=== PATIENT | male | born 1945 | race Caucasian/White ===

== ENCOUNTER 2016-11-12 15:29 | Emergency (ER) | payer OTHER ==
[~2016-11-12] VITALS: Ht 172.7 cm; Wt 75.0 kg
[2016-11-12 15:31] VITALS: BP 214/115; PULSE 73; RESP 14; TEMP 97.6; O2SAT 94
[2016-11-12] MEDS ORDERED: LABETALOL HCL 100 MG/20 ML VIAL IV PUSH ONE (16:15)
[2016-11-12] MEDS ORDERED: LACTTAB8 PO (16:16)
[2016-11-12] MEDS ORDERED: MULT-142 PO (16:16)
[2016-11-12] MEDS ORDERED: ASPI81TA11 PO (16:16)
[2016-11-12] MEDS ORDERED: ASCO500T PO (16:16)
[2016-11-12] MEDS ORDERED: SIMV80TA PO (16:16)
[2016-11-12 16:19] VITALS: BP_SYST 192; BP_SYST 205; BP_SYST 230; BP_DIAS 101; BP_DIAS 105; RESP 21; RESP 25; RESP 28
--- NOTE | 2016-11-12 16:35 | PD ---
HPI Chief Complaint: Hypertension Time Seen by Provider: 16:31 Travel History International Travel<30 days: No Contact w/Intl Traveler<30days: No Traveled to known affect area: No History of Present Illness HPI 71-year-old male that presents to the ED for evaluation of hypertension. Patient states that he was seen by his doctor today who recommended that he comes here secondary to severe hypertension in the 200s systolic as well as lightheadedness. He denies any chest pain. No history of hypertension in the past. Per patient he monitors his blood pressure regularly and is usually in the 150s 140s. He has not taken anything for it. He does have a history of smoking. Per patient he feels lightheaded on occasion and not all the time. No pain of any kind. He does tell me that he is currently being monitored for a nodule to his left lung. He denies any chest pain. No shortness of breath. Per patient she's had scans for the nodule under all been within normal limits. She had a scan today before he went to see him and he sent them here. Per patient he was [facility] He was sent here for evaluation of the high blood pressure. He denies any fevers chills or sweats. No allergies to medication. PFSH Past Medical History High Cholesterol: Yes Diminished Hearing: No Hypertension: Yes Social History Alcohol Use: Yes (Occasionally) Tobacco Use: No Substance Use: No Allergies-Medications (Allergen,Severity, Reaction): Coded Allergies: No Known Allergies (Unverified , 11/12/16) Reported Meds & Prescriptions Reported Meds & Active Scripts Active Hydrochlorothiazide 25 Mg Tab 25 Mg PO BID Reported Simvastatin 80 Mg Tab 40 Mg PO DAILY Multi Vitamin and Mineral (Multiple Vitamins W/ Minerals) 1 Tab Tab 1 Tab PO EVERY OTHER DAY Lactobacillus Acidophilus 1 Tab Tab 1 Tab PO BID Aspirin EC (Aspirin) 81 Mg Tabdr 81 Mg PO DAILY Ascorbic Acid 500 Mg Tab 500 Mg PO DAILY Review of Systems Except as stated in HPI: all other systems reviewed are Neg Physical Exam Narrative GENERAL: SKIN: Warm and dry. HEAD: Atraumatic. Normocephalic. EYES: Pupils equal and round. No scleral icterus. No injection or drainage. ENT: No nasal bleeding or discharge. Mucous membranes pink and moist. Tongue is midline. No uvula deviation. NECK: Trachea midline. No JVD. CARDIOVASCULAR: Regular rate and rhythm. No murmurs, S3, S4. RESPIRATORY: No accessory muscle use. Clear to auscultation. Breath sounds equal bilaterally. GASTROINTESTINAL: Abdomen soft, non-tender, nondistended. Hepatic and splenic margins not palpable. MUSCULOSKELETAL: Extremities without clubbing, cyanosis, or edema. No obvious deformities. Full range of motion of the upper and lower extremities bilaterally. 2+ pulses bilaterally. NEUROLOGICAL: Awake and alert. No obvious cranial nerve deficits. Motor grossly within normal limits. Five out of 5 muscle strength in the arms and legs. Normal speech. PSYCHIATRIC: Appropriate mood and affect; insight and judgment normal. Data Data Last Documented VS Vital Signs Date Time Temp Pulse Resp B/P Pulse Ox O2 Delivery O2 Flow Rate FiO2 11/12/16 18:26 84 16 183/90 95 Room Air 11/12/16 15:31 97.6 Orders Complete Blood Count With Diff (11/12/16 16:13) Basic Metabolic Panel (Bmp) (11/12/16 16:13) Ckmb (Isoenzyme) Profile (11/12/16 16:13) Troponin I (11/12/16 16:13) Magnesium (Mg) (11/12/16 16:13) Thyroid Stimulating Hormone (11/12/16 16:13) Ct Brain W/O Iv Contrast(Rout) (11/12/16 16:13) Iv Access Insert/Monitor (11/12/16 16:13) Ecg Monitoring (11/12/16 16:13) Oximetry (11/12/16 16:13) Orthostatic Vital Signs (11/12/16 16:13) Labetalol Inj (Trandate Inj) (11/12/16 16:15) Chest, Single Ap (11/12/16 ) CKMB (11/12/16 16:29) CKMB% (11/12/16 16:29) Troponin I (11/12/16 17:34) Electrocardiogram (11/12/16 16:25) Labs Laboratory Tests Test 11/12/16 11/12/16 16:29 18:32 White Blood Count 7.9 TH/MM3 Red Blood Count 5.27 MIL/MM3 Hemoglobin 13.9 GM/DL Hematocrit 43.0 % Mean Corpuscular Volume 81.6 FL Mean Corpuscular Hemoglobin 26.4 PG Mean Corpuscular Hemoglobin 32.4 % Concent Red Cell Distribution Width 14.6 % Platelet Count 183 TH/MM3 Mean Platelet Volume 9.7 FL Neutrophils (%) (Auto) 56.1 % Lymphocytes (%) (Auto) 29.8 % Monocytes (%) (Auto) 10.5 % Eosinophils (%) (Auto) 3.2 % Basophils (%) (Auto) 0.4 % Neutrophils # (Auto) 4.4 TH/MM3 Lymphocytes # (Auto) 2.3 TH/MM3 Monocytes # (Auto) 0.8 TH/MM3 Eosinophils # (Auto) 0.3 TH/MM3 Basophils # (Auto) 0.0 TH/MM3 CBC Comment DIFF FINAL Differential Comment Sodium Level 141 MEQ/L Potassium Level 3.9 MEQ/L Chloride Level 107 MEQ/L Carbon Dioxide Level 26.5 MEQ/L Anion Gap 8 MEQ/L Blood Urea Nitrogen 17 MG/DL Creatinine 1.34 MG/DL Estimat Glomerular Filtration 52 ML/MIN Rate Random Glucose 82 MG/DL Calcium Level 8.7 MG/DL Magnesium Level 2.4 MG/DL Total Creatine Kinase 118 U/L Creatine Kinase MB 2.0 NG/ML Troponin I 0.02 NG/ML 0.03 NG/ML Thyroid Stimulating Hormone 1.920 uIU/ML 3rd Gen [facility] Medical Decision Making Medical Screen Exam Complete: Yes Emergency Medical Condition: Yes Medical Record Reviewed: Yes Interpretation(s) CBC & BMP Diagram 11/12/16 16:29 troponin 0.02 and 0.03 Last Impressions Chest X-Ray 11/12/16 0000 Signed Impressions: Service Date/Time: November 16:21 - CONCLUSION: No acute disease. El Jung MD CT head negative Differential Diagnosis Essential hypertension versus hypertensive emergency versus malignant hypertension versus lightheadedness versus CVA versus dizziness versus CA Narrative Course 71-year-old male that presents to the ED for evaluation of hypertension. Patient was properly examined and was found to have signs and symptoms consistent appears to be hypertension. Unclear etiology. This time patient was given labetalol and my attendings recommendations. Labs and imaging were ordered. Labs and imaging showed no sign of acute disease. Case was discussed in my attending Dr. Flores who recommends 2nd Troponin is he is troponin was slightly high at 0.02 which is still negative but he was concerned. Second troponin came back as 0.03. Barely elevated. Case was discussed in my attending Dr. Joaquin who agrees the patient can be discharged from or old for admission. Patient prefers to go home. At this time of my attendings recommendations will start patient on hydrochlorothiazide. He was told side effects of this medication. He was told that if he develops any chest pain of his life and is worsens he is to come back immediately to the ED. He agrees and understands this plan. See ED worsening symptoms. Follow with PCP. Diagnosis Primary Impression: Hypertension Qualified Code: I10 - Essential hypertension Patient Instructions: General Instructions Additional Instructions: Take medication as prescribed. Follow with PCP. See ED for any worsening symptoms. Med/Other Pt SpecificInfo: Prescription(s) given Scripts Hydrochlorothiazide 25 Mg Tab25 Mg PO BID #30 TAB Prov:Jonatan Flores MD 11/12/16 Disposition: 01 DISCHARGE HOME Condition: Stable Gaetano Kumar Nov 12, 2016 16:35
[2016-11-12 16:38] VITALS: BP 184/84; PULSE 86; RESP 21
--- NOTE | 2016-11-12 16:38 | RADRPT ---
EXAM DATE/TIME: 11/12/2016 16:21 [facility] COMPARISON: No previous studies available for comparison. INDICATIONS : Chest pain, light headed MEDICAL HISTORY : None. SURGICAL HISTORY : None. ENCOUNTER: Initial ACUITY: 1 day PAIN SCORE: 0/10 LOCATION: chest FINDINGS: A single view of the chest demonstrates the lungs to be symmetrically aerated without evidence of mas s, infiltrate or effusion. The cardiomediastinal contours are unremarkable. Osseous structures are intact. CONCLUSION: No acute disease. El Jung MD on November 12, 2016 at 16:36 Board Certified Radiologist. This report was verified electronically.
[2016-11-12 16:47] LABS: AUTOMATED NEUTROPHIL # 4.4 TH/MM3 (1.8-7.7); BASOPHIL % 0.4 % (0.0-2.0); EOSINOPHIL # 0.3 TH/MM3 (0-0.4); EOSINOPHIL % 3.2 % (0.0-4.0); HEMO FLAGS DIFF FINAL; LYMPH % 29.8 % (9.0-44.0); LYMPHOCYTE # 2.3 TH/MM3 (1.0-4.8); MEAN CELL VOLUME 81.6 FL (80.0-100.0); MEAN CORPUSCULAR HEMOGLOBIN 26.4 PG (27.0-34.0); MEAN CORPUSCULAR HGB CONC 32.4 % (32.0-36.0); MONO % 10.5 % (0.0-8.0); NEUT % 56.1 % (16.0-70.0); PLATELET COUNT 183 TH/MM3 (150-450); RED BLOOD COUNT 5.27 MIL/MM3 (4.50-5.90); RED CELL DISTRIBUTION WIDTH 14.6 % (11.6-17.2); WHITE BLOOD COUNT 7.9 TH/MM3 (4.0-11.0)
[2016-11-12 17:04] LABS: ANION GAP 8 MEQ/L (5-15); BICARBONATE 26.5 MEQ/L (21.0-32.0); BLOOD UREA NITROGEN 17 MG/DL (7-18); CHLORIDE 107 MEQ/L (98-107); GLOMERULAR FILTRATION RATE 52 ML/MIN (>89); MAGNESIUM 2.4 MG/DL (1.5-2.5); POTASSIUM 3.9 MEQ/L (3.5-5.1); SODIUM (NA) 141 MEQ/L (136-145)
[2016-11-12 17:13] LABS: CREATINE KINASE 118 U/L (39-308)
[2016-11-12 17:15] VITALS: BP 183/91; PULSE 82; RESP 16; O2SAT 95
--- NOTE | 2016-11-12 18:00 | RADRPT ---
EXAM DATE/TIME: 11/12/2016 17:50 [facility] COMPARISON: No previous studies available for comparison. INDICATIONS : Syncopal episode. RADIATION DOSE: 33.65CTDIvol (mGy) MEDICAL HISTORY : Hypertension. SURGICAL HISTORY : None. ENCOUNTER: Initial ACUITY: 3 weeks PAIN SCALE: 0/10 LOCATION: cranial TECHNIQUE: Multiple contiguous axial images were obtained of the head. Using automated exposure control and adj ustment of the mA and/or kV according to patient size, radiation dose was kept as low as reasonably a chievable to obtain optimal diagnostic quality images. DICOM format image data is available electro nically for review and comparison. FINDINGS: There is no evidence of intracranial hemorrhage or mass. There is nothing to suggest acute infarction . The ventricles are symmetric and normal. Extracranial structures are benign and intact. CONCLUSION: No acute intracranial findings. Eugene Mares MD on November 12, 2016 at 17:57 Board Certified Radiologist. This report was verified electronically.
[2016-11-12 18:26] VITALS: BP 183/90; PULSE 84; RESP 16; O2SAT 95
[2016-11-12] MEDS ORDERED: LABE100T2 PO (18:55)
[2016-11-12] MEDS ORDERED: HYDR25TA5 PO (18:59)
[2016-11-12 19:46] VITALS: BP 188/90; PULSE 78; RESP 18; O2SAT 98
--- NOTE | 2016-11-13 16:44 | EKG ---
Date Performed: 11/12/2016 Time Performed: 16:25:33 PTAGE: 71 years EKG: Sinus rhythm NORMAL ECG NO PREVIOUS TRACING DOCTOR: Oliver Berg Interpretating Date/Time 11/13/2016 16:43:59
--- NOTE | 2016-11-13 16:46 | EKG ---
Date Performed: 11/12/2016 Time Performed: 19:41:32 PTAGE: 71 years EKG: Sinus rhythm When compard to previous tracing, no significant change. NORMAL ECG PREVIOUS TRACING : 11/12/2016 16.25 DOCTOR: Oliver Berg Interpretating Date/Time 11/13/2016 16:45:34
== END 2016-11-12 19:49 | disposition home or self-care (01) ==
LOC: NEPE 15:29
DX: I10 Essential (primary) hypertension (principal); R07.9 Chest pain, unspecified; R42 Dizziness and giddiness; R55 Syncope and collapse
CPT/HCPCS: 70450; 71010; 80048; 82550; 82552; 83735; 84443; 84484; 85025; 93005; 96374